=== PATIENT | female | born 1970 | race Caucasian/White ===

== ENCOUNTER 2020-08-03 07:56 | Emergency (ER) | payer OTHER ==
[~2020-08-03] VITALS: Ht 157.5 cm; Wt 78.9 kg
[2020-08-03] MEDS ORDERED: INTESTINEX680 M1 PO (15:34)
[2020-08-03] MEDS ORDERED: LEVSIN/SL0.125 MG SL (15:34)
[2020-08-03] MEDS ORDERED: PROTONIX40 MG PO (15:34)
[2020-08-03] MEDS ORDERED: NASAL MIST126 ML (16:35)
== END 2020-08-03 15:52 | disposition home or self-care (01) ==
LOC: ER 07:56
DX: N20.0 Calculus of kidney (principal); R10.84 Generalized abdominal pain; R19.7 Diarrhea, unspecified

== ENCOUNTER 2021-02-11 17:41 | Emergency (ER) | payer OTHER ==
[~2021-02-11] VITALS: Ht 157.5 cm; Wt 81.6 kg
[~2021-02-11 17:41] MED LIST: INTESTINEX680 M1 PO; LEVSIN/SL0.125 MG SL; NASAL MIST126 ML; PROTONIX40 MG PO
== END 2021-02-12 | disposition home or self-care (01) ==
LOC: ER 17:41
DX: M54.50 Low back pain, unspecified (principal)

== ENCOUNTER 2021-03-14 03:39 | Emergency (ER) | payer OTHER ==
[~2021-03-14] VITALS: Ht 157.5 cm; Wt 81.6 kg
[2021-03-14] MEDS ORDERED: LIPITOR20 MG (04:00)
[2021-03-14] MEDS ORDERED: LEVSIN/SL0.125 MG SL (10:29)
== END 2021-03-14 10:43 | disposition home or self-care (01) ==
LOC: ER 03:39
DX: N20.0 Calculus of kidney (principal)
CPT/HCPCS: 74177; Q9965

== ENCOUNTER 2021-10-08 03:25 | Emergency (ER) | payer OTHER ==
[~2021-10-08] VITALS: Ht 157.5 cm; Wt 82.6 kg
[~2021-10-08 03:25] MED LIST changes: +LIPITOR20 MG
[2021-10-08] MEDS ORDERED: FIORICET (03:35)
[2021-10-08] MEDS ORDERED: SINGULAIR 5MG5 MG (03:35)
== END 2021-10-08 12:44 | disposition home or self-care (01) ==
LOC: ER 03:25
DX: R10.9 Unspecified abdominal pain (principal); N23 Unspecified renal colic; M54.9 Dorsalgia, unspecified

== ENCOUNTER 2022-07-12 08:03 | Emergency (ER) | payer OTHER ==
[~2022-07-12] VITALS: Ht 157.5 cm; Wt 80.7 kg
[~2022-07-12 08:03] MED LIST changes: +FIORICET; +SINGULAIR 5MG5 MG
== END 2022-07-12 15:10 | disposition home or self-care (01) ==
LOC: ER 08:03
DX: R10.9 Unspecified abdominal pain (principal); Z88.2 Allergy status to sulfonamides; Z88.0 Allergy status to penicillin; Z88.6 Allergy status to analgesic agent
CPT/HCPCS: 36415; 74177; Q9965